=== PATIENT | female | born 1980 | race Caucasian/White ===

== ENCOUNTER 2017-07-25 11:02 | Emergency (ER) | payer BC, OTHER ==
[~2017-07-25] VITALS: Ht 167.6 cm; Wt 88.4 kg
[2017-07-25 11:30] VITALS: BP 102/49; PULSE 97; RESP 16; TEMP 97.9; O2SAT 98
[2017-07-25] MEDS ORDERED: ALPR.25 PO (12:38)
[2017-07-25] MEDS ORDERED: VENL75TA PO (12:38)
--- NOTE | 2017-07-25 12:49 | PD ---
HPI Chief Complaint: GI Complaint Time Seen by Provider: 12:42 Travel History International Travel<30 days: No Contact w/Intl Traveler<30days: No Traveled to known affect area: No History of Present Illness HPI 36-year-old female came to the emergency room with history of vomiting and diarrhea since last night. Patient says vomiting and diarrhea has been nonstop. This morning she took 8 mg of Zofran that she vomited and eventually her brought her in to the hospital. No known sick contacts. She otherwise claims to be healthy. She was extremely anxious and hyperventilating. Vital signs are stable. No history of abdominal pain. She is a nurse by profession. She also says that she went to [place] for 2 days. [facility] Past Medical History Narrative Medical List of her past medical, surgical, social and family history is reviewed from the nursing note. Diminished Hearing: No Tetanus Vaccination: < 5 Years ?: Not LMP: has a IUD Past Surgical History Appendectomy: Yes Section: Yes Gynecologic Surgery: Yes (LYSIS OF ADHESIONS) Other Surgery: Yes (SINUS AND WISDOM TEETH SX) Social History Alcohol Use: Yes (SOC) Tobacco Use: No Substance Use: No Allergies-Medications (Allergen,Severity, Reaction): Coded Allergies: No Known Allergies (Unverified , 07/25/17) Comments No known drug allergies. Reported Meds & Prescriptions Reported Meds & Active Scripts Active Phenergan Supp (Promethazine HCl) 12.5 Mg Supp 12.5 Mg RECTAL Q6H PRN Reported Xanax (Alprazolam) 0.25 Mg Tab 0.25 Mg PO Q8H PRN Effexor (Venlafaxine HCl) 75 Mg Tab 75 Mg PO DAILY Narrative Medication List of her home medications reviewed from the nursing note. Review of Systems Except as stated in HPI: all other systems reviewed are Neg Gastrointestinal: Positive: Nausea, Vomiting, Diarrhea Physical Exam Narrative GENERAL: Awake, alert, anxious, moderate distress SKIN: Focused skin assessment warm/dry. HEAD: Atraumatic. Normocephalic. EYES: Pupils equal and round. No scleral icterus. No injection or drainage. ENT: No nasal bleeding or discharge. Dry mucous membrane NECK: Trachea midline. No JVD. CARDIOVASCULAR: Regular rate and rhythm. No murmur appreciated. RESPIRATORY: No accessory muscle use. Clear to auscultation. Breath sounds equal bilaterally. Hyperventilating GASTROINTESTINAL: Abdomen soft, non-tender, nondistended. Hepatic and splenic margins not palpable. MUSCULOSKELETAL: No obvious deformities. No clubbing. No cyanosis. No edema. NEUROLOGICAL: Awake and alert. No obvious cranial nerve deficits. Motor grossly within normal limits. Normal speech. PSYCHIATRIC: Appropriate mood and affect; insight and judgment normal. Data Data Last Documented VS Vital Signs Date Time Temp Pulse Resp B/P (MAP) Pulse Ox O2 Delivery O2 Flow Rate FiO2 07/25/17 14:46 98 18 101/55 (70) 98 07/25/17 13:11 Room Air 07/25/17 11:30 97.9 Orders Orders Basic Metabolic Panel (Bmp) (07/25/17 12:53) Complete Blood Count With Diff (07/25/17 12:53) Iv Access Insert/Monitor (07/25/17 12:53) Ecg Monitoring (07/25/17 12:53) Oximetry (07/25/17 12:53) Sodium Chlor 0.9% 1000 Ml Inj (Ns 1000 M (07/25/17 12:53) Sodium Chloride 0.9% Flush (Ns Flush) (07/25/17 13:00) Promethazine Inj (Phenergan Inj) (07/25/17 13:00) Calcium Carbonate Chew (Tums Chew) (07/25/17 14:30) Ed Discharge Order (07/25/17 14:17) Labs Laboratory Tests Test 07/25/17 13:05 07/25/17 13:48 White Blood Count 10.1 TH/MM3 Red Blood Count 4.99 MIL/MM3 Hemoglobin 15.4 GM/DL Hematocrit 43.9 % Mean Corpuscular Volume 88.0 FL Mean Corpuscular Hemoglobin 30.8 PG Mean Corpuscular Hemoglobin Concent 35.0 % Red Cell Distribution Width 12.1 % Platelet Count 391 TH/MM3 Mean Platelet Volume 7.7 FL Neutrophils (%) (Auto) 87.8 % Lymphocytes (%) (Auto) 5.8 % Monocytes (%) (Auto) 3.6 % Eosinophils (%) (Auto) 1.4 % Basophils (%) (Auto) 1.4 % Neutrophils # (Auto) 8.9 TH/MM3 Lymphocytes # (Auto) 0.6 TH/MM3 Monocytes # (Auto) 0.4 TH/MM3 Eosinophils # (Auto) 0.1 TH/MM3 Basophils # (Auto) 0.1 TH/MM3 CBC Comment DIFF FINAL Differential Comment Blood Urea Nitrogen 15 MG/DL Creatinine 0.64 MG/DL Random Glucose 90 MG/DL Calcium Level 7.5 MG/DL Sodium Level 140 MEQ/L Potassium Level 3.8 MEQ/L Chloride Level 109 MEQ/L Carbon Dioxide Level 24.6 MEQ/L Anion Gap 6 MEQ/L Estimat Glomerular Filtration Rate 105 ML/MIN MDM Medical Decision Making Medical Screen Exam Complete: Yes Emergency Medical Condition: Yes Medical Record Reviewed: Yes Differential Diagnosis Acute gastroenteritis, viral syndrome, dehydration Narrative Course 1:58 PM patient was given IV fluid bolus. She requested not to get Zofran and instead Phenergan and wanted only 12.5 mg. This has been given to her. Patient has not had anymore vomiting or diarrhea episodes. Awaiting for the blood test to be resulted. If blood test is within normal limits she'll be discharged home. Procedures EKG Prior to Arrival: No Diagnosis Primary Impression: Acute gastroenteritis Additional Impression: Anxiety Referrals: Primary Care Physician Additional Instructions: Lots of fluids to stay hydrated. Take the medication as per the prescription direction. Return to ER if condition worsens or any other new concerns. Otherwise follow-up with your primary care. Med/Other Pt SpecificInfo: Prescription(s) given Scripts Promethazine Supp (Phenergan Supp) 12.5 Mg Supp 12.5 MG RECTAL Q6H Y for NAUSEA OR VOMITING, #10 SUPP 0 Refills Prov: Cristian Sylvester MD 07/25/17 Disposition: 01 DISCHARGE HOME Condition: Stable Cristian Sylvester MD Jul 25, 2017 12:49
[2017-07-25] MEDS ORDERED: SODIUM CHLOR 0.9% 1000 ML INJ 1,000 ML IV SCH (12:53)
[2017-07-25] MEDS ORDERED: PROMETHAZINE INJ 25 MG/ML VIAL IM ONE (13:00)
[2017-07-25] MEDS ORDERED: SODIUM CHLORIDE 0.9% FLUSH 10 ML FLUSH IV FLUSH PRN (13:00)
[2017-07-25 13:11] VITALS: RESP 18; O2SAT 100
[2017-07-25 13:23] LABS: AUTOMATED NEUTROPHIL # 8.9 TH/MM3 (1.8-7.7); BASOPHIL # 0.1 TH/MM3 (0-0.2); BASOPHIL % 1.4 % (0.0-2.0); EOSINOPHIL # 0.1 TH/MM3 (0-0.4); EOSINOPHIL % 1.4 % (0.0-4.0); HEMATOCRIT 43.9 % (35.0-46.0); HEMOGLOBIN 15.4 GM/DL (11.6-15.3); LYMPH % 5.8 % (9.0-44.0); LYMPHOCYTE # 0.6 TH/MM3 (1.0-4.8); MEAN CORPUSCULAR HEMOGLOBIN 30.8 PG (27.0-34.0); MEAN PLATELET VOLUME 7.7 FL (7.0-11.0); MONO % 3.6 % (0.0-8.0); MONOCYTE # 0.4 TH/MM3 (0-0.9); NEUT % 87.8 % (16.0-70.0); PLATELET COUNT 391 TH/MM3 (150-450); RED BLOOD COUNT 4.99 MIL/MM3 (4.00-5.30); RED CELL DISTRIBUTION WIDTH 12.1 % (11.6-17.2); WHITE BLOOD COUNT 10.1 TH/MM3 (4.0-11.0)
[2017-07-25 14:11] LABS: BICARBONATE 24.6 MEQ/L (21.0-32.0); CALCIUM 7.5 MG/DL (8.5-10.1)
[2017-07-25 14:15] LABS: CREATININE 0.64 MG/DL (0.50-1.00)
[2017-07-25] MEDS ORDERED: PROM2SUP RECTAL (14:19)
[2017-07-25] MEDS ORDERED: CALCIUM CARBONATE 500 MG CHEWABLE TAB CHEW ONE (14:30)
[2017-07-25 14:46] VITALS: BP 101/55
== END 2017-07-25 15:00 | disposition home or self-care (01) ==
LOC: PHED 11:02
DX: K52.9 Noninfective gastroenteritis and colitis, unspecified (principal); F41.9 Anxiety disorder, unspecified
CPT/HCPCS: 80048; 85025; 96360; 96372; 99283; J2550; J7030